=== PATIENT | female | born 1995 | race Caucasian/White ===

== ENCOUNTER 2018-06-22 07:40 | Emergency (ER) | payer OTHER ==
[2018-06-22 07:52] VITALS: BP 122/63
--- NOTE | 2018-06-22 09:33 | ER Document Report ---
HPI - HPI Time Seen by Provider: 06/22/18 09:07 Pain Level: 2 Context: Patient is a 22-year-old female who presents to the emergency department with a chief complaint of a sore throat, cough, and nasal congestion. She states that she is had her symptoms for the past few days. She denies any fever. She does admit to having some exudate on her tonsils. Denies any past medical history. She does not take any medications. She states it is difficult to swallow some times. - CONSTITUTIONAL Constitutional: DENIES: Fever, Chills - EENT EENT: REPORTS: Sore Throat, Ear Pain - Left, Nasal Drainage-Purulent, Congestion. DENIES: Eye problems - NEURO Neurology: DENIES: Headache - CARDIOVASCULAR Cardiovascular: DENIES: Chest pain - RESPIRATORY Respiratory: REPORTS: Coughing. DENIES: Trouble Breathing - GASTROINTESTINAL Gastrointestinal: DENIES: Abdominal Pain, Nausea, Patient vomiting, Diarrhea - REPRODUCTIVE Reproductive: DENIES: : - MUSCULOSKELETAL Musculoskeletal: DENIES: Extremity pain - DERM Skin Color: Normal Skin Problems: None Past Medical History - Social History Smoking Status: Never Smoker Family History: Reviewed & Not Pertinent Vertical Provider Document - CONSTITUTIONAL Agree With Documented VS: Yes Exam Limitations: No Limitations General Appearance: No Apparent Distress - INFECTION CONTROL TRAVEL OUTSIDE OF THE [place] IN LAST 30 DAYS: No - HEENT HEENT: Atraumatic, Normocephalic, PERRLA, Pharyngeal Exudate, Pharyngeal Tenderness, Pharyngeal Erythema, Tympanic Membrane Red - Left; with purulent drainage behind tympanic membrane, Tympanic Membrane Bulging - Left. negative: Conjuctival Injection - NECK Neck: Normal Inspection - RESPIRATORY Respiratory: Breath Sounds Normal, No Respiratory Distress - CARDIOVASCULAR Cardiovascular: Regular Rate, Regular Rhythm Pulses: Normal: Radial - MUSCULOSKELETAL/EXTREMETIES Musculoskeletal/Extremeties: FROM - NEURO Level of Consciousness: Awake, Alert, Appropriate Motor/Sensory: No Motor Deficit, No Sensory Deficit - DERM Integumentary: Warm, Dry Course - Re-evaluation Re-evalutation: 06/22/18 10:38 Patient does purulence noted high in her left tympanic membrane, consistent with acute otitis media. I do not suspect mastoiditis. I will start her on amoxicillin. Her rapid strep is negative at this time. I do not suspect peritonsillar abscess, Lorenzo's angina, or any life-threatening etiology at this time. Patient appears nontoxic and well in appearance. She will follow-up with her primary care provider in regards to this visit. Verbal discharge instructions were given to the patient. They verbalized understanding. They are stable for discharge. - Vital Signs Vital signs: Temp Pulse Resp BP Pulse Ox 98.2 F 66 16 122/63 97 06/22/18 07:49 06/22/18 07:49 06/22/18 07:49 06/22/18 07:49 06/22/18 07:49 Discharge - Discharge Clinical Impression: Sore throat Acute otitis media Qualifiers: Otitis media type: mucoid Laterality: left Qualified Code(s): H65.112 - Acute and subacute allergic otitis media (mucoid) (sanguinous) (serous), left ear Condition: Stable Disposition: HOME, SELF-CARE Additional Instructions: You were seen today in the emergency department for a sore throat and left ear pain. You have an ear infection in her left ear. Take your antibiotics as prescribed. Please follow up with your primary care provider. Return if you have worsening symptoms. Prescriptions: Amoxicillin Trihydrate [Amoxil 875 mg Tablet] 1 tab PO BID #20 tablet
== END 2018-06-22 10:55 | disposition home or self-care (01) ==
LOC: ER 07:40
DX: H65.112 Acute and subacute allergic otitis media (mucoid) (sanguinous) (serous), left ear (principal); J02.9 Acute pharyngitis, unspecified; R05 Cough; R09.81 Nasal congestion; H92.02 Otalgia, left ear
CPT/HCPCS: 87070; 87077; 87880; 99283

== ENCOUNTER 2019-03-30 09:26 | Emergency (ER) | payer OTHER ==
[2019-03-30 09:36] VITALS: BP 132/77
[2019-03-30] MEDS ORDERED: IBUPROFEN 600 MG TABLET PO ONE (10:07)
--- NOTE | 2019-03-30 10:34 | RADIOLOGY REPORT (SQ) ---
EXAM DESCRIPTION: WRIST RIGHT 3 VIEWS COMPLETED DATE/TIME: 03/30/2019 10:18 am REASON FOR STUDY: right wrist injury COMPARISON: None. NUMBER OF VIEWS: Three views. TECHNIQUE: AP, lateral, and oblique radiographic images acquired of the right wrist. LIMITATIONS: None. FINDINGS: MINERALIZATION: Normal. BONES: No acute fracture or dislocation. The normal carpal alignment is preserved. SOFT TISSUES: No soft tissue swelling. OTHER: No other finding. IMPRESSION: No acute osseous abnormality of the right wrist. TECHNICAL DOCUMENTATION: JOB ID: [id number] [employer]- All Rights Reserved Reading location - IP/workstation name: [id number] [email or web address] [email or web address]
--- NOTE | 2019-03-30 10:39 | ER Document Report ---
HPI - HPI Time Seen by Provider: 03/30/19 09:58 Pain Level: 3 Notes: Otherwise healthy 23-year-old female presenting to the emergency department chief complaint of injury to her right wrist. Patient reports she was at work when a large box fell off of a high shelf down some steps and landed on her wrist. This injury occurred a few days ago. - REPRODUCTIVE Reproductive: DENIES: : Past Medical History - General Information source: Patient - Social History Smoking Status: Never Smoker Frequency of alcohol use: None Drug Abuse: None Family History: Reviewed & Not Pertinent Patient has suicidal ideation: No Patient has homicidal ideation: No - Medical History Medical History: Negative Renal/ Medical History: Denies: Hx Peritoneal Dialysis Surgical Hx: Negative - Immunizations Immunizations up to date: Yes Vertical Provider Document - CONSTITUTIONAL Notes: PHYSICAL EXAMINATION: GENERAL: Well-appearing, well-nourished and in no acute distress. HEAD: Atraumatic, normocephalic. EYES: Pupils equal round extraocular movements intact, conjunctiva are normal. ENT: Nares patent NECK: Normal range of motion LUNGS: No respiratory distress Musculoskeletal: Slightly limited range of motion with dorsiflexion of right wrist, cap refill less than 3 seconds, normal motor and sensation distally, strong radial pulse. No snuffbox tenderness. NEUROLOGICAL: Normal speech, normal gait. PSYCH: Normal mood, normal affect. SKIN: Warm, Dry, normal turgor, no rashes or lesions noted. - INFECTION CONTROL TRAVEL OUTSIDE OF THE [place] IN LAST 30 DAYS: No Course - Re-evaluation Re-evalutation: X-rays were negative. Patient will remain in her cock-up splint that she came in with. She will be followed up by Workmen's [employer]. provider and possibly orthopedics if needed if pain continues. - Vital Signs Vital signs: Temp Pulse Resp BP Pulse Ox 98.4 F 72 16 132/77 H 98 03/30/19 09:35 03/30/19 09:35 03/30/19 09:35 03/30/19 09:35 03/30/19 09:35 Discharge - Discharge Clinical Impression: Contusion of right wrist Qualifiers: Encounter type: initial encounter Qualified Code(s): S60.211A - Contusion of right wrist, initial encounter Condition: Stable Disposition: HOME, SELF-CARE Additional Instructions: Contusion Your injury has resulted in a contusion -- a crushing of the deep tissues. No injury to important structures was detected during the physician's exam. Contusions vary in the amount of pain they cause, and in the length of time required for healing. Typically, the area will become bruised, and will remain painful to touch for two or three weeks. However, most patients are back to working and playing within a few days. After the initial period of rest and cold-packs, your symptoms (together with the doctor's recommendations) will determine how rapidly you can get back to full activity. Usually this means "do what feels okay, but don't do things that hurt." If re-examination was recommended, it's important to follow up as instructed. Call the doctor or return any time if pain increases, if swelling becomes severe, if you develop numbness or weakness in an injured extremity, or if any other alarming symptoms occur. Ice & Elevation Apply ice packs frequently against the painful area. Many different schedules are recommended, such as "20 minutes on, 20 minutes off" or "one hour ice, two hours rest." If you need to work, you may need to go longer between ice treatments. You should plan to have the area ice packed AT LEAST one-fourth of the time. The ice should be applied over the wrap, tape, or splint, or over a layer of cloth -- not directly against the skin. Some ice bags have a built-in cloth and can be put directly on the skin. Your injured part should be elevated as much as possible over the next 48 hours. Try to keep the injury above the level of the heart. Avoid use of the injured area. Elevation and rest will decrease the swelling. Ibuprofen Ibuprofen is an excellent, safe drug for pain control. In addition, it has potent antiinflammatory effects which are beneficial, especially in the treatment of injuries, arthritis, or tendonitis. It's best to take ibuprofen with food. Persons with ulcer disease or allergy to aspirin should notify their physician of this before taking ibuprofen. Take the medication exactly as prescribed. Don't take additional doses unless instructed to do so by your doctor. If you develop wheezing, shortness of breath, hives, faintness, stomach pain, vomiting, or dark black stools, return for re-evaluation at once. The x-rays were negative for any fracture or dislocation. Please take ibuprofen [id number] as directed to help with pain and inflammation. If your pain persists over the next 5 to 7 days, please follow-up with an orthopedic doctor. A phone number for an orthopedic doctor has been given to you below. Forms: Special Work Note Referrals: JENNA WINN JR, DO [ACTIVE PROVISIONAL STAFF] - Follow up as needed
== END 2019-03-30 10:54 | disposition home or self-care (01) ==
LOC: ER 09:26
DX: S60.211A Contusion of right wrist, initial encounter (principal); M25.531 Pain in right wrist; W22.8XXA Striking against or struck by other objects, initial encounter
CPT/HCPCS: 99283